=== PATIENT | male | born 1970 | race African-American/Black ===

== ENCOUNTER 2018-04-24 13:26 | Emergency (ER) | payer OTHER ==
[~2018-04-24] VITALS: Ht 170.2 cm; Wt 56.7 kg
[~2018-04-24 13:26] MED LIST: ADVAIR 250-501 EACH IH; ADVAIR HFA 230M12 GM; AMPICILLIN TRI500 MG PO; AUGMENTIN 875875 M1 PO; CREON 10 EC CA249 MG; DESYREL50 MG PO; HUMULIN N100 UNIT/1 SQ; IBUPROFEN 600600 M1 PO; KEFLEX500 MG PO; LANTUS SC; LEVAQUIN 500 M500 MG PO; LIPITOR 20 MG T20 M1 PO; NICOTINE TRANSD21 M1 TRANSDERM; NORCO 5-325 TA1 EACH PO; NORVASC 2.5 MG2.5 M1; NOVOLOG100 UNIT/1 SQ; OXYCODONE; PHENERGAN 25 MG25 M1 PO; PHENERGAN-CODE120 ML PO; POTASSIUM CHLO10 ME1 PO; PREDNISONE 10 M10 MG; PRILOSEC40 MG PO; PROTONIX40 M2; VITAMIN B-1100 M1 PO; ZANTAC300 MG
[2018-04-24 14:25] LABS: HEMOGLOBIN 14.5 gm/dL (14.0-18.0); MCHC 34.3 g/dL (28.0-37.0); WBC 4.6 thou/uL (4.0-11.0)
[2018-04-24 14:27] LABS: HEMATOCRIT 42.4 % (42.0-52.0); PLATELET COUNT 157 thou/uL (150-400); RBC 4.03 mil/uL (4.50-6.00); RDW 11.9 % (10.5-14.5)
[2018-04-24 14:37] LABS: CALCIUM 9.4 mg/dL (8.5-10.1); CREATININE 1.3 mg/dL (0.7-1.3); POTASSIUM 5.5 mmol/L (3.5-5.1)
[2018-04-24 14:43] LABS: URINE BILIRUBIN NEGATIVE (Negative); URINE BLOOD TRACE (Negative); URINE CLARITY CLEAR; URINE COLOR YELLOW; URINE GLUCOSE-RANDOM* 3+ (Negative); URINE KETONES 2+ (Negative); URINE LEUKOCYTES-REFLEX NEGATIVE (Negative); URINE NITRITE-REFLEX NEGATIVE (Negative); URINE PROTEIN (DIPSTICK) NEGATIVE (Negative); URINE SPECIFIC GRAVITY <= 1.005 (1.005-1.035); URINE UROBILINOGEN 0.2 E.U./dl (0.2-1.0)
[2018-04-24 14:43] LABS: BE(vivo) -0.7 mmol/L (-2 to +3); HCO3 24.4 mmol/L (22.0-26.0); PCO2 41.8 mmHg (35.0-45.0); PO2 70.3 mmHg (80.0-100.0); pH 7.384 (7.360-7.450); sO2 93.9 % (92.0-98.0)
[2018-04-24 15:13] LABS: ABSOLUTE NEUTROPHILS 2.7 thou/uL (1.4-8.2); MACROCYTES 1+
[2018-04-24] MEDS ORDERED: NEURONTIN600 MG PO (15:50)
[2018-04-24] MEDS ORDERED: LEVEMIR SUBQ (15:50)
[2018-04-24] MEDS ORDERED: HUMALOG100 UNIT/1 SUBQ (15:50)
[2018-04-24 17:24] LABS: CALCIUM 7.8 mg/dL (8.5-10.1); CREATININE 0.8 mg/dL (0.7-1.3)
[2018-04-24 17:29] LABS: POTASSIUM 4.3 mmol/L (3.5-5.1)
== END 2018-04-24 18:22 | disposition home or self-care (01) ==
LOC: ER 13:26
PROVIDERS: Emergency Medicine
DX: E11.65 Type 2 diabetes mellitus with hyperglycemia (principal); E11.10 Type 2 diabetes mellitus with ketoacidosis without coma; Z91.11 Patient's noncompliance with dietary regimen; J45.909 Unspecified asthma, uncomplicated; I10 Essential (primary) hypertension; F17.210 Nicotine dependence, cigarettes, uncomplicated; Z88.8 Allergy status to other drugs, medicaments and biological substances